=== PATIENT | male | born 1955 | race Caucasian/White ===

== ENCOUNTER 2022-10-13 07:25 | Emergency (ER) | payer OTHER ==
[2022-10-13] VITALS (44 sets, daily range): BP systolic 70–229; BP diastolic 34–168
[2022-10-13 08:42] LABS: HEMATOCRIT 23.2 % (39.0-50.0); HEMOGLOBIN 7.2 g/dl (14.0-18.0); MEAN CELL VOLUME 95.9 fL CALC (80.0-100.0); MEAN CORPUSCULAR HGB 29.8 pG CALC (26.0-32.0); PLATELET COUNT 130 thou/uL (130-400); RED BLOOD COUNT 2.42 mill/uL (4.70-6.10); RED CELL DISTRI WIDTH 12.9 % (11.5-15.5)
[2022-10-13 08:55] LABS: IMMATURE GRANULOCYTES 11.7 % (0.0-5.0)
[2022-10-13 08:56] LABS: MANUAL DIFFERENTIAL YES
[2022-10-13 09:08] LABS: ALBUMIN 2.1 g/dL (3.2-5.0); CREATININE 1.5 mg/dL (0.7-1.3); TOTAL PROTEIN 3.5 g/dL (6.3-8.2)
[2022-10-13 09:18] LABS: POTASSIUM 5.6 mmol/l (3.5-5.1)
[2022-10-13 09:42] LABS: URINE BILIRUBIN - DIPSTICK NEGATIVE (NEGATIVE); URINE BLOOD DIPSTICK LARGE (NEGATIVE); URINE COLOR YELLOW; URINE GLUCOSE - DIPSTICK 100 mg/dL (NEGATIVE); URINE KETONE TRACE mg/dL (NEGATIVE); URINE LEUK ESTERASE NEGATIVE (Negative); URINE NITRITE - DIPSTICK NEGATIVE (Negative); URINE PH 5.5 (4.5-8.0); URINE PROTEIN - DIPSTICK 100 mg/dL (NEG-TRACE); URINE SPECIFIC GRAVITY >=1.030; URINE UROBILINOGEN - DIPSTICK 0.2 E.U./dL (0.2)
[2022-10-13 09:48] LABS: BAND 12 % (0-8)
[2022-10-13 09:50] LABS: URINE CLARITY CLOUDY
[2022-10-13 09:51] LABS: URINE EPITHELIAL CELLS MODERATE EPI/hpf (0-FEW); URINE MUCUS MODERATE hpf (NONE-FEW)
--- NOTE | 2022-10-15 11:27 | NUR ---
PRELIMINARY BLOOD CULTURE SHOWS GRAM (+) COCCI IN 1/4 VIALS. LIKELY CONTAMINANT. PATIENT WAS TRASFERRED TO [facility]. CALLED [facility] AND WAS TOLD PATIENT HAS BEEN DISCHARGED.
== END 2022-10-13 09:20 | disposition short-term general hospital (02) | DRG 377 ==
LOC: ED 07:25
PROVIDERS: Emergency Medicine
PROC: 04HY32Z Insertion of Monitoring Device into Lower Artery, Percutaneous Approach (ICD-10-PCS; principal; 2022-10-13)
DX: K92.2 Gastrointestinal hemorrhage, unspecified (principal); I46.9 Cardiac arrest, cause unspecified; R10.9 Unspecified abdominal pain
CPT/HCPCS: J2060